=== PATIENT | female | born 1965 | race Caucasian/White ===

== ENCOUNTER 2020-12-13 10:50 | Outpatient (REF) | payer OTHER, SELFPAY ==
--- NOTE | ~2020-12-13 | MM_ITS ---
EXAMINATION: MM SCREENING DIGITAL BREAST TOMOSYNTHESIS, BILATERAL CLINICAL INFORMATION: Screening. Asymptomatic. The lifetime risk of breast cancer based on the Tyrer-Cuzick Model is 5%. COMPARISON: Mammography: 12/15/2018, 12/13/2017, 12/10/2016 TECHNIQUE: Digital breast tomosynthesis is performed in both the craniocaudal and mediolateral oblique views along with computer-aided detection (CAD). Synthesized 2D images are generated from the tomosynthesis. FINDINGS: There are scattered areas of fibroglandular density (ACR BI-RADS breast composition Category b). There are no significant masses, abnormal calcifications, or other abnormalities. Parenchymal pattern is similar to prior studies. No developing density. Skin contours are smooth. No significant changes. MM/MM tomosynthesis screening BI IMPRESSION: No mammographic evidence of malignancy. ASSESSMENT: BI-RADS 1: Negative RECOMMENDATION: Routine annual mammography screening. This patient's information was entered into a reminder system with a target due date for their next mammogram.
== END 2020-12-13 10:51 | disposition home or self-care (01) ==
LOC: HO.MAMMO 10:50
PROVIDERS: PCP Internal Medicine; Visit Provider Internal Medicine
DX: Z12.31 Encounter for screening mammogram for malignant neoplasm of breast (principal)
CPT/HCPCS: 77063; 77067

== ENCOUNTER 2021-10-15 09:25 | Outpatient (REF) | payer OTHER, SELFPAY ==
[2021-10-15 11:28] LABS: MANUAL DIFF FLAG NO
[2021-10-15 11:39] LABS: Basophils Percent Auto 0.6 % (0-2); Eosinophils Absolute Auto 0.1 X10*3/uL (0.0-0.4); Hemoglobin 14.9 g/dl (12.0-16.0); Imm Gran Abs Auto 0.03 X10*3/uL (0.00-0.03); Imm Gran Pct Auto 0.4 % (0.0-0.4); Lymphocytes Absolute Auto 2.2 X10*3/uL (1.2-4.9); Lymphocytes Percent Auto 30.3 % (20-40); Mean Corpuscular HGB Conc 33.1 g/dl (31.0-35.0); Mean Corpuscular Hemoglobin 29.6 pg (27.0-33.0); Mean Corpuscular Volume 89.3 fL (80.0-98.0); Mean Platelet Volume 10.3 fL (9.4-12.3); Monocytes Absolute Auto 0.4 X10*3/uL (0.1-1.2); Monocytes Percent Auto 6.1 % (2-11); Neutrophils Absolute Auto 4.4 x10*3/uL (2.0-8.3); Neutrophils Percent Auto 61.6 % (45-73); Platelet Count 380 X10*3/uL (160-400); Red Blood Count 5.04 X10*6/uL (4.20-5.50); Red Cell Distribution Width 12.8 % (11.0-16.0); White Blood Count 7.2 X10*3/uL (4.8-10.8)
== END 2021-10-15 09:26 | disposition home or self-care (01) ==
LOC: HO.HMGCLDS 09:25
PROVIDERS: Visit Provider Internal Medicine
DX: Z00.01 Encounter for general adult medical examination with abnormal findings (principal); L30.9 Dermatitis, unspecified; J45.40 Moderate persistent asthma, uncomplicated
CPT/HCPCS: 36415; 85025

== ENCOUNTER 2021-12-16 09:44 | Outpatient (REF) | payer OTHER, SELFPAY ==
--- NOTE | ~2021-12-16 | MM_ITS ---
EXAMINATION: MM SCREENING DIGITAL BREAST TOMOSYNTHESIS, BILATERAL CLINICAL INFORMATION: Screening. Asymptomatic. The lifetime risk of breast cancer based on the Tyrer-Cuzick Model is 9.9%. COMPARISON: Mammography: December 13, 2020 and studies dating back to November 04, 2013 TECHNIQUE: Digital breast tomosynthesis is performed in both the craniocaudal and mediolateral oblique views along with computer-aided detection (CAD). Synthesized 2D images are generated from the tomosynthesis. FINDINGS: There are scattered areas of fibroglandular density (ACR BI-RADS breast composition Category b). There are no significant masses, abnormal calcifications, or other abnormalities. MM/MM tomosynthesis screening BI IMPRESSION: There are no significant changes from prior study. ASSESSMENT: BI-RADS 1: Negative RECOMMENDATION: Routine annual mammography screening. This patient's information was entered into a reminder system with a target due date for their next mammogram.
== END 2021-12-16 09:45 | disposition home or self-care (01) ==
LOC: HO.MAMMO 09:44
PROVIDERS: PCP Internal Medicine; Visit Provider Internal Medicine
DX: Z12.31 Encounter for screening mammogram for malignant neoplasm of breast (principal)
CPT/HCPCS: 77063; 77067

== ENCOUNTER 2022-10-23 10:17 | Outpatient (REF) | payer OTHER, SELFPAY ==
[2022-10-23 11:17] LABS: MANUAL DIFF FLAG NO
[2022-10-23 11:56] LABS: Basophils Percent Auto 0.6 % (0-2); Eosinophils Absolute Auto 0.1 X10*3/uL (0.0-0.4); Eosinophils Percent Auto 1.3 % (0-4); Hematocrit 44.9 % (37.0-47.0); Hemoglobin 14.8 g/dl (12.0-16.0); Imm Gran Abs Auto 0.01 X10*3/uL (0.00-0.03); Imm Gran Pct Auto 0.1 % (0.0-0.4); Lymphocytes Absolute Auto 2.3 X10*3/uL (1.2-4.9); Lymphocytes Percent Auto 32.5 % (20-40); Mean Corpuscular Hemoglobin 29.2 pg (27.0-33.0); Mean Corpuscular Volume 88.7 fL (80.0-98.0); Mean Platelet Volume 9.5 fL (9.4-12.3); Monocytes Absolute Auto 0.5 X10*3/uL (0.1-1.2); Monocytes Percent Auto 6.9 % (2-11); Neutrophils Absolute Auto 4.1 x10*3/uL (2.0-8.3); Neutrophils Percent Auto 58.6 % (45-73); Platelet Count 411 X10*3/uL (160-400); Red Blood Count 5.06 X10*6/uL (4.20-5.50); Red Cell Distribution Width 13.2 % (11.0-16.0); White Blood Count 6.9 X10*3/uL (4.8-10.8)
[2022-10-23 11:57] LABS: Appearance Urine Clear; Color Urine Yellow; Glucose Urine UA Negative (Negative); Leukocyte Esterase Urine Trace (Negative); Nitrite Urine Negative (Negative); PH 5.5 (5.0-9.0); UMIC TRIGGER UACC YES; Urine Blood Negative (Negative); Urine Ketones Negative (Negative); Urine Protein Negative (Neg-Trace)
[2022-10-23 12:08] LABS: Bacteria Urine None Seen (None Seen); Hyaline Casts Urine 0-2 /LPF (0-2); RBC Urine 0-2 /HPF (0-2); WBC Urine 0-5 /HPF (0-5)
[2022-10-23 13:57] LABS: Alanine Aminotransferase 28 U/L (0-31); Albumin Level 4.5 g/dL (3.5-5.0); Alkaline Phosphatase 104 U/L (39-117); Anion Gap 15 (12-20); Aspartate Amino Transferase 30 U/L (5-31); Bilirubin Total 0.5 mg/dL (0.0-1.0); Blood Urea Nitrogen 10 mg/dL (9-16); Calcium 9.7 mg/dL (8.4-10.2); Carbon Dioxide 25 mmol/L (22-29); Chloride 107 mmol/L (96-108); Cholesterol 201 mg/dL; Estimated Glomerular Filt Rate > 60; Glucose Fasting 90 mg/dL (60-99); HDL Cholesterol 69 mg/dL; LDL Cholesterol Calculated 113 mg/dl; Potassium 4.6 mmol/L (3.3-5.1); Sodium 142 mmol/L (135-145); Total Protein 7.2 g/dL (6.5-8.0); Triglycerides 96 mg/dL
[2022-10-23 14:14] LABS: TSH reflex Free T4 2.09 uIU/mL (0.32-4.0)
== END 2022-10-23 10:18 | disposition home or self-care (01) ==
LOC: HO.HMGCLDS 10:17
PROVIDERS: PCP Internal Medicine; Visit Provider Internal Medicine
DX: Z00.01 Encounter for general adult medical examination with abnormal findings (principal); E66.09 Other obesity due to excess calories; J45.40 Moderate persistent asthma, uncomplicated
CPT/HCPCS: 36415; 80053; 80061; 81001; 84443; 85025

== ENCOUNTER 2022-12-21 09:46 | Outpatient (REF) | payer OTHER, SELFPAY ==
--- NOTE | ~2022-12-21 | MM_ITS ---
EXAMINATION: MM SCREENING DIGITAL BREAST TOMOSYNTHESIS, BILATERAL CLINICAL INFORMATION: Screening. Asymptomatic. The lifetime risk of breast cancer based on the Tyrer-Cuzick Model is 9%. COMPARISON: Mammography: 12/16/2021, 12/13/2020, 12/15/2018 TECHNIQUE: Digital breast tomosynthesis is performed in both the craniocaudal and mediolateral oblique views along with computer-aided detection (CAD). Synthesized 2D images are generated from the tomosynthesis. FINDINGS: There are scattered areas of fibroglandular density (ACR BI-RADS breast composition Category b). There are no significant masses, abnormal calcifications, or other abnormalities. Parenchymal pattern is similar to prior studies. Scattered minor asymmetries are stable. There is no developing density or architectural abnormality. The axilla and skin contours are unremarkable. No significant changes. MM/MM tomosynthesis screening BI IMPRESSION: No mammographic evidence of malignancy. ASSESSMENT: BI-RADS 2: Benign RECOMMENDATION: Routine annual mammography screening. This patient's information was entered into a reminder system with a target due date for their next mammogram.
== END 2022-12-21 09:47 | disposition home or self-care (01) ==
LOC: HO.MAMMO 09:46
PROVIDERS: PCP Internal Medicine; Visit Provider Internal Medicine
DX: Z12.31 Encounter for screening mammogram for malignant neoplasm of breast (principal)
CPT/HCPCS: 77063; 77067

== ENCOUNTER 2023-10-29 09:46 | Outpatient (AMB) | payer BC, SELFPAY ==
--- NOTE | 2023-10-29 09:48 | MHC.PC.OV ---
Vital Signs 10/29/23 09:49 Height 5 ft 3.5 in Weight 175 lb BMI 30.5 BP 130/80 Blood Pressure Location Lt brachial Position Sitting Pulse 110 H Pulse Source Pulse Oximeter Pulse Oximetry (%) 98 Oxygen Delivery Method Room Air Intake Visit Reasons: PE Allergies codeine [CODEINE] Allergy (Intermediate, Verified 10/29/23 09:57) SHORTNESS OF BREATH montelukast Allergy (Unknown, Verified 10/29/23 09:57) hives salmeterol Allergy (Unknown, Verified 10/29/23 09:57) Unknown beclomethasone [From Qvar] Adverse Reaction (Verified 10/29/23 10:14) Palpitations ENVIRONMENTAL Allergy (Intermediate, Uncoded 10/15/21 08:58) ITCHY EYES,ETC. From SEREVENT DISKUS Allergy (Intermediate, Uncoded 10/15/21 08:58) TACHYCARDIA Codein Allergy (Unknown, Uncoded 10/15/21 08:58) Unknown Codeine Phosphate Allergy (Unknown, Uncoded 10/15/21 08:58) Unknown Latex Allergy (Unknown, Uncoded 10/15/21 08:58) Unknown latex Allergy (Unknown, Uncoded 10/15/21 08:58) Unknown Montelukast Allergy (Unknown, Uncoded 10/15/21 08:58) Unknown seasonal Allergy (Unknown, Uncoded 10/15/21 08:58) Unknown Serevent Diskus Allergy (Unknown, Uncoded 10/15/21 08:58) Unknown Medication List - Last Reconciled 10/29/23 by Jeremy Bullard MD albuterol sulfate 90 mcg/actuation (ProAir HFA) 2 puffs inhalation DAILY 30 days albuterol sulfate 90 mcg/actuation (ProAir HFA) 1 inh inhalation QID PRN 30 days [Blood pressure monitor As directed] Flovent HFA 110 mcg/actuation (fluticasone propionate) 2 puffs inhalation BID 90 days NS Tobacco use date assessed: 10/29/23 Dental Screening Dental Screen Date: 10/29/23 Did you have a dental visit in the last 12 months?: Yes Did you have a dental problem in the last 6 months where you did not have access to dental care?: No Was dental information given to patient?: Patient has dentist HPI PE HPI Details Patient is a 57-year-old female came in today for physical examination Asthma is stable patient is on Flovent inhaler currently, she could not take QVAR and Serevent that caused palpitations Low and has been discontinued patient is little bit worried, I have sent Pulmicort she is to give it a try She is due for colonoscopy however does not want to do it as yet Lab order placed to be done fasting BMI is elevated at 30.5 need to lose weight OBGYN is located at [facility] have smear and breast exam through [facility]. Mammogram is due in December Follow-up 6 months and physical exam 1 year [facility] Surgical History No pertinent past surgical history Family History Other Mental health disorder Social History Housing: House Patient Tobacco Use Status: Never used Tobacco e-Cigarette/Vaping Use: Never Used service: No Current occupational status: unemployed Cognitive needs: No Hearing needs: No Vision needs: Yes Questionnaire PHQ-9 Over the last 2 weeks, how often have you been bothered by any of the following problems? 1. Little interest or pleasure in doing things: not at all 2. Feeling down, depressed, or hopeless: not at all 3. Trouble falling or staying asleep, or sleeping too much: not at all 4. Feeling tired or having little energy: not at all 5. Poor appetite or overeating: not at all 6. Feeling bad about yourself - or that you are a failure or have let yourself or your family down: not at all 7. Trouble concentrating on things, such as reading the newspaper or watching television: not at all 8. Moving or speaking so slowly that other people could have noticed. Or the opposite - being so fidgety or restless that you have been moving around a lot more than usual: not at all 9. Thoughts that you would be better off or of hurting yourself in some way: not at all Total score: 0 Depression Screening Interpretation: Negative Depression Screening Done: Yes 82601 - PHQ-9 Billing: Yes Source: Developed by Drs. Mitchell Carnes, Alisia B.W. Vincent Roy and colleagues, with an educational sandy from [employer]. Thrive Questionnaire Date Thrive assessed: 10/29/23 I am a: Patient Within the past 12 months, did the food you bought not last and you didn't have the money to get more?: Never true Within the past 12 months, did you worry whether your food would run out before you got money to buy more?: Never true Do you have trouble paying for medicines?: No Do you have trouble getting transportation to medical appointments?: No Do you have trouble paying your heating and electricity bill?: No Do you have trouble taking care of your child, family member or friend?: No Do you have trouble with day-to-day activities such as bathing, preparing meals, shopping, managing finances, etc.?: No Are you currently unemployed and looking for a job?: No Please select the resources that you would like help with: Housing/Skilled Nursing and None Currently or been in a relationship where the following occur: no concerns reported THRIVE Score: 0 AUDIT C Alcohol Use Questionnaire (AUDIT-C) 1. How often do you have a drink containing alcohol?: Never 3. How often do you have six or more drinks on one occasion?: Never Total Score: 0 Score Reviewed/Action Taken: Yes DIANE-7 AMB Questionnaire DIANE-7 Date DIANE - 7 assessed: 10/29/23 Feeling nervous, anxious, or on edge: 1 = Several days Not being able to stop or control worryin = Not at all Worrying too much about different things: 0 = Not at all Trouble relaxin = Not at all Being so restless that it is hard to sit still: 0 = Not at all Becoming easily annoyed or irritable: 0 = Not at all Feeling afraid as if something awful might happen: 0 = Not at all Total DIANE-7 score (0-4 normal; 5-9 mild; 10-14 moderate; 15-21 severe): 1 Source: Developed by Drs. Mitchell Carnes, Vincent Tran and colleagues, with an educational sandy from [employer]. DIANE-7 Assessment Billing DIANE-7 Assessment Tool: DIANE-7 Assessment 32381 Review of Systems Const Denies chills, Denies fever(s) and Denies headache(s) Eyes Denies blurry vision ENT Denies headache(s), Denies nasal discharge, Denies nasal obstruction, Denies odynophagia and Denies sinus pain Card Denies chest pain at rest and Denies chest pain with activity Resp Denies cough and Denies hemoptysis GI Denies diarrhea, Denies odynophagia, Denies vomiting and Denies hematemesis Reports as per HPI Musc Denies abnormal gait Skin/Breast Reports as per HPI Neuro Denies Neuro-related abnormal movements, Denies Abnormal speech present, Denies abnormal gait, Denies headache(s) and Denies Sensory deficit (Neuro) Psych Denies mood swings and Denies paranoia Endo Reports as per HPI Seth/Lymph Reports as per HPI Aller/Immun Reports as per HPI Physical exam (Primary Care) Vital Signs: Last Vital Signs Pulse 110 H 10/29/23 09:49 BP 130/80 10/29/23 09:49 Pulse Ox 98 10/29/23 09:49 Oxygen Delivery Method Room Air 10/29/23 09:49 BMI result Body Mass Index 30.5 Tobacco/Smoking Status: Tobacco use Status Tobacco use date assessed 10/29/23 10/29/23 10:04 Patient Tobacco Use Status Never used Tobacco 10/29/23 09:49 e-Cigarette/Vaping Use Never Used 10/29/23 09:49 PHQ-9: PHQ-9 Score PHQ-9: Total score 0 10/29/23 10:06 Depression Screening Interpretation: Negative Thrive Assessment: Date of Thrive Assessment Date Thrive assessed 10/29/23 10/29/23 10:04 Currently or been in a relationship where the following occur: no concerns reported Const General: cooperative, comfortable and no acute distress Orientation/consciousness: patient oriented x3 HENMT Head: Yes normocephalic and Yes atraumatic Eyes General: appearance normal, both eyes and all related structures Pupils: Equal, round and reactive pupils present EOM: EOMs intact bilaterally Neck Neck: Yes supple and No lymphadenopathy Thyroid: Thyroid normal Lymphatic: no lymphadenopathy noted Resp Effort & Inspection: normal respiratory effort and able to speak in complete sentences Auscultation: clear to auscultation bilaterally Cardio Heart sounds: S1 normal heart sound present and S2 normal heart sound present GI Palpation (GI): Soft to palpation and nontender Auscultation: normal bowel sounds General: Yes no CVA tenderness Back/Spine/Pelvis Back: no CVA tenderness Skin General skin exam: elasticity normal and turgor normal Neuro General: patient oriented x3 and gait normal Cranial nerves: Yes Equal, round and reactive pupils present Speech: No Abnormal speech present Sensory Exam: No Sensory deficit (Neuro) Coordination: tandem gait normal and Romberg test negative Extrem General: Yes normal exam except as noted and No edema Assessment and Plan Assessment & Plan (1) Encounter for general adult medical examination with abnormal findings: Code(s): Z00.01 - Encounter for general adult medical examination with abnormal findings (2) Asthma, moderate persistent: Code(s): J45.40 - Moderate persistent asthma, uncomplicated Qualifiers: Asthma complication type: uncomplicated (3) Obesity due to excess calories: Code(s): E66.09 - Other obesity due to excess calories Qualifiers: Obesity classification: adult class 1 (BMI 30 - 34.9) Serious obesity comorbidity presence: without serious comorbidity Body mass index: BMI 30.0-30.9 (4) Anxiety, generalized: Code(s): F41.1 - Generalized anxiety disorder Plan Patient is a 57-year-old female came in today for physical examination Asthma is stable patient is on Flovent inhaler currently, she could not take QVAR and Serevent that caused palpitations Low and has been discontinued patient is little bit worried, I have sent Pulmicort she is to give it a try She takes escitalopram only if needed for few days and then stop, refill provided She is due for colonoscopy however does not want to do it as yet Lab order placed to be done fasting BMI is elevated at 30.5 need to lose weight OBGYN is located at [facility] have smear and breast exam through [facility]. Mammogram is due in December Follow-up 6 months and physical exam 1 year Orders: Orders Complete Blood Count Auto Diff Today E66.09 - Other obesity due to excess calories, J45.40 - Moderate persistent asthma, uncomplicated, Z00. - Encounter for general adult medical examination with abnormal findings Comprehensive [place]. Panel Fast Today E66.09 - Other obesity due to excess calories, J45.40 - Moderate persistent asthma, uncomplicated, Z00.01 - Encounter for general adult medical examination with abnormal findings TSH reflex Free T4 Today E66.09 - Other obesity due to excess calories, J45.40 - Moderate persistent asthma, uncomplicated, Z00.01 - Encounter for general adult medical examination with abnormal findings UA CC w/rflx Micro + Cult Today E66.09 - Other obesity due to excess calories, J45.40 - Moderate persistent asthma, uncomplicated, Z00.01 - Encounter for general adult medical examination with abnormal findings Lipid Panel Today E66.09 - Other obesity due to excess calories, J45.40 - Moderate persistent asthma, uncomplicated, Z00.01 - Encounter for general adult medical examination with abnormal findings Medications: New budesonide 90 mcg/actuation (Pulmicort Flexhaler) 1 inh inhalation BID 30 days 1 ea 0RF escitalopram oxalate (Lexapro) 5 mg PO DAILY 30 tabs 0RF Changed From Flovent HFA 110 mcg/actuation (fluticasone propionate) 2 puffs inhalation BID 90 days 3 multiple units 0RF NS To fluticasone propionate 110 mcg/actuation 2 puffs inhalation BID 90 days 3 multiple units 0RF NS Coding Level of Care Code Est Pt Prev Care 40-64y(13561) Diagnoses Encounter for general adult medical examination with abnormal findings Z00.01 Asthma, moderate persistent J45.40 Asthma complication type: uncomplicated Obesity due to excess calories E66.09 Obesity classification: adult class 1 (BMI 30 - 34.9) Serious obesity comorbidity presence: without serious comorbidity Body mass index: BMI 30.0-30.9 Anxiety, generalized F41.1 Additional Codes DIANE-7 Assessment Billing - DIANE-7 Assessment Tool: DIANE-7 Assessment [id number] ([id number])
[2023-10-29 09:49] VITALS: BP 130/80; PULSE 110; O2SAT 98; BMI 30.5
== END 2023-10-29 10:25 | disposition home or self-care (01) ==
PROVIDERS: Visit Provider Internal Medicine
DX: Z00.00 Encounter for general adult medical examination without abnormal findings (principal); J45.40 Moderate persistent asthma, uncomplicated; E66.09 Other obesity due to excess calories; Z68.30 Body mass index [BMI] 30.0-30.9, adult; F41.1 Generalized anxiety disorder
CPT/HCPCS: 99396

== ENCOUNTER 2023-10-29 10:28 | Outpatient (REF) | payer BC, SELFPAY ==
[2023-10-29 13:26] LABS: MANUAL DIFF FLAG NO
[2023-10-29 13:40] LABS: Appearance Urine Turbid; Color Urine Yellow; Glucose Urine UA Negative (Negative); Leukocyte Esterase Urine Negative (Negative); Nitrite Urine Negative (Negative); Urine Blood Negative (Negative); Urine Ketones Negative (Negative); Urine Protein Negative (Neg-Trace)
[2023-10-29 13:46] LABS: Basophils Absolute Auto 0.1 X10*3/uL (0.0-0.2); Basophils Percent Auto 0.8 % (0-2); Eosinophils Absolute Auto 0.1 X10*3/uL (0.0-0.4); Eosinophils Percent Auto 1.2 % (0-4); Hematocrit 43.8 % (37.0-47.0); Hemoglobin 14.6 g/dl (12.0-16.0); Imm Gran Abs Auto 0.03 X10*3/uL (0.00-0.03); Imm Gran Pct Auto 0.5 % (0.0-0.4); Lymphocytes Absolute Auto 1.7 X10*3/uL (1.2-4.9); Lymphocytes Percent Auto 28.3 % (20-40); Mean Corpuscular HGB Conc 33.3 g/dl (31.0-35.0); Mean Corpuscular Hemoglobin 29.9 pg (27.0-33.0); Mean Corpuscular Volume 89.6 fL (80.0-98.0); Mean Platelet Volume 9.7 fL (9.4-12.3); Monocytes Absolute Auto 0.4 X10*3/uL (0.1-1.2); Neutrophils Absolute Auto 3.8 x10*3/uL (2.0-8.3); Neutrophils Percent Auto 63.2 % (45-73); Platelet Count 427 X10*3/uL (160-400); Red Blood Count 4.89 X10*6/uL (4.20-5.50); Red Cell Distribution Width 12.7 % (11.0-16.0)
[2023-10-29 17:28] LABS: Alanine Aminotransferase 24 U/L (0-31); Albumin Level 4.5 g/dL (3.5-5.0); Alkaline Phosphatase 108 U/L (39-117); Anion Gap 12 (12-20); Aspartate Amino Transferase 26 U/L (5-31); Bilirubin Total 0.5 mg/dL (0.0-1.0); Blood Urea Nitrogen 11 mg/dL (9-16); Calcium 9.8 mg/dL (8.4-10.2); Carbon Dioxide 25 mmol/L (22-29); Chloride 107 mmol/L (96-108); Cholesterol 199 mg/dL (<200); Estimated Glomerular Filt Rate > 60; Glucose Fasting 100 mg/dL (60-99); HDL Cholesterol 70 mg/dL (>40); Potassium 4.1 mmol/L (3.3-5.1); Sodium 140 mmol/L (135-145); TSH reflex Free T4 2.29 uIU/mL (0.32-4.0); Total Protein 7.9 g/dL (6.5-8.0)
[2023-10-29 18:02] LABS: LDL Cholesterol Calculated 113 mg/dL (<100); Triglycerides 80 mg/dL (<150)
== END 2023-10-29 10:29 | disposition home or self-care (01) ==
LOC: HO.HMGCLDS 10:28
PROVIDERS: PCP Internal Medicine; Visit Provider Internal Medicine
DX: Z00.01 Encounter for general adult medical examination with abnormal findings (principal); J45.40 Moderate persistent asthma, uncomplicated; E66.09 Other obesity due to excess calories
CPT/HCPCS: 36415; 80053; 80061; 81003; 84443; 85025

== ENCOUNTER 2023-12-27 09:28 | Outpatient (REF) | payer BC, SELFPAY | END 2023-12-27 09:29 | disposition home or self-care (01) | LOC: HO.MAMMO 09:28 | PROVIDERS: PCP Internal Medicine; Visit Provider Internal Medicine | DX: Z12.31 Encounter for screening mammogram for malignant neoplasm of breast (principal) | CPT/HCPCS: 77063; 77067 ==

== ENCOUNTER → 2023-12-27 09:45 | Outpatient (BNV) | payer BC, SELFPAY | PROVIDERS: PCP Internal Medicine; Visit Provider Radiology Diagnostic Radiology | DX: Z12.31 Encounter for screening mammogram for malignant neoplasm of breast (principal) | CPT/HCPCS: 77063; 77067 ==

== ENCOUNTER 2024-11-10 09:45 | Outpatient (AMB) | payer BC, SELFPAY ==
[2024-11-10 09:47] VITALS: BP 118/78; PULSE 97; O2SAT 98; BMI 29.8
--- NOTE | 2024-11-10 09:47 | A.OFFPC_ITS ---
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 From SEREVENT DISKUS Allergy (Intermediate, Uncoded 10/15/21 08:58) TACHYCARDIA Codein Allergy (Unknown, Uncoded 10/15/21 08:58) Unknown Codeine Phosphate Allergy (Unknown, Uncoded 10/15/21 08:58) Unknown Latex Allergy (Unknown, Uncoded 10/15/21 08:58) Unknown latex Allergy (Unknown, Uncoded 10/15/21 08:58) Unknown Montelukast Allergy (Unknown, Uncoded 10/15/21 08:58) Unknown seasonal Allergy (Unknown, Uncoded 10/15/21 08:58) Unknown Serevent Diskus Allergy (Unknown, Uncoded 10/15/21 08:58) Unknown Medication List - Last Reconciled 11/10/24 by Jeremy Bullard MD albuterol sulfate 90 mcg/actuation (ProAir HFA) 1 inh inhalation QID PRN 30 days [Blood pressure monitor As directed] budesonide 90 mcg/actuation (Pulmicort Flexhaler) 1 inh inhalation BID 30 days escitalopram oxalate (Lexapro) 5 mg PO DAILY Tobacco use date assessed: 11/10/24 Dental Screening Dental Screen Date: 11/10/24 Did you have a dental visit in the last 12 months?: Yes Did you have a dental problem in the last 6 months where you did not have access to dental care?: No Was dental information given to patient?: Patient has dentist HPI PE HPI Details History of Present Illness - The patient is a 58-year-old female pr esenting with a need for a physical examination and medication management. - The patient has a history of asthma fo r which she has been using a fluticasone inhaler. The brand she uses is being discontinued, creating a need for an alternative. She experiences adverse reactions such as tachycardia and lightheadedness with bronchodilators. - She reports impaired glucose tolerance discovered during her previous visit, with normal kidney function but elevated sugar levels. - The patient also has a history of anxi ety, managed intermittently with aescitalopram. - She has been experiencing allergic rhi nitis, with symptoms exacerbated by seasonal changes, particularly in the fall, leading to the occasional use of Benadryl. - The patient reports stability in her e czema, which she has been managing effectively without recent exacerbations. Health Maintenance - Mammogram is due and scheduled for Dec. - Colonoscopy pending scheduling; patien t considering winter timing based on tra nsportation. - Labs to be repeated today include gluc ose levels, vitamin D, lipid levels, thyroid function, liver and kidney functions. - Avoidance of bronchodilators due to a history of adverse reactions. Medications - Fluticasone (for asthma, brand discont inuing) - Esitalopram as needed (for anxiety) Diagnostic results - Labs from October show normal CBC, keshia l kidney functions, slightly elevated glucose levels. Patient Instructions - Schedule mammogram for January 01. - Schedule colonoscopy for winter if tra nsportation is arranged. - Take Claritin daily during allergy sea son as preventive medication. - Follow-up with pharmacy regarding avai lability of alternative inhalers and coverage under insurance. - Use inhaler as directed and report any adverse reactions promptly. - Discuss potential systems support specialist consultation if difficulties persist with inhaler options. - Maintain regular use of anxiety medica tion as needed. Review of Systems - General: No fever no chills - Neurological: No headaches no dizzin ess - Ear nose throat: No sore throat no hearing difficulty no ear pain - Cardiovascular: No syncope, no chest pain, no palpitations - Gastrointestinal: No nausea vomiting or diarrhea - Endocrine: No polyuria polydipsia no heat intolerance - Genitourinary: No dysuria - Skin: No new complaints Physical Exam General: Cooperative, healthy appearing, comfortable, no acute distress Orientation: Patient oriented x3 Head: Normal to inspection Ears: Within normal limit visually Nose: Normal external nose present Face and sinus: Normal facial exam Eyes: Appearance normal, extraocular movement intact pupils reactive Neck: Normal visual inspection and supple Respiratory: Normal respiratory effort and able to speak in complete sentences. Clear to auscultation, no stridor. Lungs are good right now. Cardiovascular: S1 and S2 RRR breast exam by Obgyn GI: Normal to inspection. Soft to palpation and nontender Skin: Turgor normal, no acute findings. Eczema seems to be under control. Neuro: Patient oriented x3, motor sensory intact, balance intact, tandem pass Extremities: Normal to inspection [facility] Surgical History No pertinent past surgical history Family History Other Mental health disorder Social History Housing: House Patient Tobacco Use Status: Never used Tobacco e-Cigarette/Vaping Use: Never Used service: No Current occupational status: unemployed Cognitive needs: No Hearing needs: No Vision needs: Yes Questionnaire PHQ-9 Over the last 2 weeks, how often have you been bothered by any of the following problems? 1. Little interest or pleasure in doing things: not at all 2. Feeling down, depressed, or hopeless: not at all 3. Trouble falling or staying asleep, or sleeping too much: several days 4. Feeling tired or having little energy: several days 5. Poor appetite or overeating: not at all 6. Feeling bad about yourself - or that you are a failure or have let yourself or your family down: not at all 7. Trouble concentrating on things, such as reading the newspaper or watching television: not at all 8. Moving or speaking so slowly that other people could have noticed. Or the opposite - being so fidgety or restless that you have been moving around a lot more than usual: not at all 9. Thoughts that you would be better off or of hurting yourself in some way: not at all Total score: 2 Depression Screening Interpretation: Negative Depression Screening Done: Yes 84248 - PHQ-9 Billing: Yes Source: Developed by Drs. Mitchell Carnes, Alisia Roy, Vincent Lees and colleagues, with an educational sandy from [employer]. Thrive Questionnaire Date Thrive assessed: 11/10/24 I am a: Patient What is your living situation today?: I have a place to live, but I am worried about losing it in the future Within the past 12 months, did the food you bought not last and you didn't have the money to get more?: Never true Within the past 12 months, did you worry whether your food would run out before you got money to buy more?: Never true Do you have trouble paying for medicines?: No Do you have trouble getting transportation to medical appointments?: No Do you have trouble paying your heating and electricity bill?: No Do you have trouble taking care of your child, family member or friend?: No Do you have trouble with day-to-day activities such as bathing, preparing meals, shopping, managing finances, etc.?: No Are you currently unemployed and looking for a job?: No Are you interested in more education?: No Please select the resources that you would like help with: None Currently or been in a relationship where the following occur: No concerns reported THRIVE Score: 1 AUDIT C Alcohol Use Questionnaire (AUDIT-C) 1. How often do you have a drink containing alcohol?: Never 3. How often do you have six or more drinks on one occasion?: Never Total Score: 0 Score Reviewed/Action Taken: Yes DIANE-7 AMB Questionnaire DIANE-7 Date DIANE - 7 assessed: 11/10/24 Feeling nervous, anxious, or on edge: 1 = Several days Not being able to stop or control worryin = Several days Worrying too much about different things: 1 = Several days Trouble relaxin = Several days Being so restless that it is hard to sit still: 0 = Not at all Becoming easily annoyed or irritable: 1 = Several days Feeling afraid as if something awful might happen: 0 = Not at all Total DIANE-7 score (0-4 normal; 5-9 mild; 10-14 moderate; 15-21 severe): 5 Source: Developed by Drs. Mitchell Carnes, Alisia Roy, Vincent Lees and colleagues, with an educational sandy from [employer]. DIANE-7 Assessment Billing DIANE-7 Assessment Tool: DIANE-7 Assessment 57175 Physical exam (Primary Care) Vital Signs: Last Vital Signs Pulse 97 11/10/24 09:47 BP 118/78 11/10/24 09:47 Pulse Ox 98 11/10/24 09:47 Oxygen Delivery Method Room Air 11/10/24 09:47 BMI result Body Mass Index 29.8 Tobacco/Smoking Status: Tobacco use Status Tobacco use date assessed 11/10/24 11/10/24 09:49 Patient Tobacco Use Status Never used Tobacco 11/10/24 09:49 e-Cigarette/Vaping Use Never Used 11/10/24 09:49 PHQ-9: PHQ-9 Score PHQ-9: Total score 2 11/10/24 09:49 Depression Screening Interpretation: Negative Thrive Assessment: Date of Thrive Assessment Date Thrive assessed 11/10/24 11/10/24 09:49 Currently or been in a relationship where the following occur: No concerns reported Coding Level of Care Code Est Pt Level 3 (15558) Est Pt Prev Care 40-64y(40879) Diagnoses Encounter for general adult medical examination with abnormal findings Z00.01 Anxiety, generalized F41.1 Moderate persistent asthma without complication J45.40 Asthma complication type: uncomplicated Additional Codes DIANE-7 Assessment Billing - DIANE-7 Assessment Tool: DIANE-7 Assessment 32714 ([id number]) PHQ-9 - 05913 - PHQ-9 Billing: Yes ([id number]) Assessment & Plan Assessment & Plan (1) Encounter for general adult medical examination with abnormal findings: Code(s): Z00.01 - Encounter for general adult medical examination with abnormal findings Category: Medical (2) Anxiety, generalized: Code(s): F41.1 - Generalized anxiety disorder Category: Medical (3) Asthma, moderate persistent: Code(s): J45.40 - Moderate persistent asthma, uncomplicated Category: Medical Qualifiers: Asthma complication type: uncomplicated Qualified Code(s): J45.40 - Moderate persistent asthma, uncomplicated Plan History of Present Illness - The patient is a 58-year-old female presenting with a need for a physical examination and medication management. - The patient has a history of asthma for which she has been using a fluticasone inhaler. The brand she uses is being discontinued, creating a need for an alternative. She experiences adverse reactions such as tachycardia and lightheadedness with bronchodilators. - She reports impaired glucose tolerance discovered during her previous visit, with normal kidney function but elevated sugar levels. - The patient also has a history of anxiety, managed intermittently with aescitalopram. - She has been experiencing allergic rhinitis, with symptoms exacerbated by seasonal changes, particularly in the fall, leading to the occasional use of Benadryl. - The patient reports stability in her eczema, which she has been managing effectively without recent exacerbations. Health Maintenance - Mammogram is due and scheduled for January 01. - Colonoscopy pending scheduling; patient considering winter timing based on transportation. - Labs to be repeated today include glucose levels, vitamin D, lipid levels, thyroid function, liver and kidney functions. - Avoidance of bronchodilators due to a history of adverse reactions. Medications - Fluticasone (for asthma, brand discontinuing) - Esitalopram as needed (for anxiety) Diagnostic results - Labs from October show normal CBC, normal kidney functions, slightly elevated glucose levels. Patient Instructions - Schedule mammogram for January 01. - Schedule colonoscopy for winter if transportation is arranged. - Take Claritin daily during allergy season as preventive medication. - Follow-up with pharmacy regarding availability of alternative inhalers and coverage under insurance. - Use inhaler as directed and report any adverse reactions promptly. - Discuss potential systems support specialist consultation if difficulties persist with inhaler options. - Maintain regular use of anxiety medication as needed. Orders: Orders Comprehensive Dulce. Panel Fast Today F41.1 - Generalized anxiety disorder, J45.40 - Moderate persistent asthma, uncomplicated, Z00.01 - Encounter for general adult medical examination with abnormal findings Lipid Panel Today F41.1 - Generalized anxiety disorder, J45.40 - Moderate persistent asthma, uncomplicated, Z00.01 - Encounter for general adult medical examination with abnormal findings TSH reflex Free T4 Today F41.1 - Generalized anxiety disorder, J45.40 - Moderate persistent asthma, uncomplicated, Z00.01 - Encounter for general adult medical examination with abnormal findings Complete Blood Count Auto Diff Today F41.1 - Generalized anxiety disorder, J45.40 - Moderate persistent asthma, uncomplicated, Z00.01 - Encounter for general adult medical examination with abnormal findings Vitamin D 25-OH (D2 and D3) Today F41.1 - Generalized anxiety disorder, J45.40 - Moderate persistent asthma, uncomplicated, Z00.01 - Encounter for general adult medical examination with abnormal findings UA CC w/rflx Micro + Cult Today F41.1 - Generalized anxiety disorder, J45.40 - Moderate persistent asthma, uncomplicated, Z00.01 - Encounter for general adult medical examination with abnormal findings Medications: New fluticasone furoate 200 mcg/actuation (Arnuity Ellipta) 1 inh inhalation DAILY 30 ea 0RF Refilled escitalopram oxalate (Lexapro) 5 mg PO DAILY 30 tabs 0RF Discontinued budesonide 90 mcg/actuation (Pulmicort Flexhaler) Discontinued Reason: Doctor's Order 1 inh inhalation BID 30 days 1 ea 0RF
--- OUTSIDE RECORDS SUMMARY | 2024-11-10 10:33 | XMS_ITS | Clinical Summary ---
Author Organization [facility] [address] [place] [address] [address] [place] [address] Phone Care Team Providers Care Hydrochloric Area Supervisor Name Role Phone Jeremy Bullard MD Primary Care Provider [phone] Allergies Active Allergy Reactions Criticality Noted Date Comments Latex 06/10/2021 Montelukast Sodium 06/10/2021 Other 06/10/2021 Seasonal Allergies Salmeterol 06/10/2021 Medications albuterol 2.5 mg /3 mL (0.083 %) nebulizer solution Take 1 Vial by nebulization every 4 hours as needed. Active BUDESONIDE NASL by Nasal route. Active fluticasone propionate (FLOVENT HFA INHL) Inhale into the lungs. Active Surgical History Surgery Date Site/Laterality Comments TONSILLECTOMY PROCEDURE: HISTORICAL TONSILLECTOMY APPENDECTOMY PROCEDURE: HISTORICAL APPENDECTOMY Medical History Medical History Date Comments Mild intermittent asthma, uncomplicated DX:Mild intermittent asthma, uncomplicated History of pneumonia DX:History of pneumonia Anxiety and depression DX:Anxiet y and depression Family History Medical History Relation Name Comments Stroke Father Ovarian cancer Other maternal aunt Stroke Paternal Grandmother Breast cancer Neg Hx Colon cancer Neg Hx Pancreatic cancer Neg Hx Prostate cancer Neg Hx Uterine cancer Neg Hx Relation Name Status Comments Father Other maternal aunt Paternal Grandmother Social History Tobacco Use Types Packs/Day Years Used Date Smoking Tobacco: Never Smokeless Tobacco: Never Alcohol Use Standard Drinks/Week Comments Never 0 (1 standard drink = 0.6 oz pur e alcohol) Housing Instability Answer Date Recorde d Are you worried that in the next 2 months you may not have stable housing? No 10/30/2024 Food Access & Nutrition Answer Date Rec orded Do you have access to a vari ety of food including fruits and vegetables? Yes 10/30/2024 Access to Healthcare Answer Date Record ed Within the last 3 months, ho w many times did you visit the emergency department for your medical care? 0 10/30/2024 Health Literacy Answer Date Recorded How often do you need to hav e someone help you when you read instructions, pamphlets, or other written material from your doctor or pharmacy? Never 10/30/2024 Caregiver: How often do you need to have someone help you when you read instructions, pamphlets, or other written material from your doctor or pharmacy? Not on file 10/30/2024 Financial Risk Answer Date Recorded How hard is it for you to pa y for the very basics like food, housing, medical care, and air conditioning / heating? Not very hard 10/30/2024 Transportation Answer Date Recorded Has the lack of transportati on kept you from meetings, work, or from getting things needed for daily living? No 10/30/2024 Has the lack of transportati on kept you from medical appointments or from getting medications? Not on file 10/30/2024 Social Isolation Answer Date Recorded How often do you feel lonely or isolated from th ose around you? Rarely 10/30/2024 Food Risk Answer Date Recorded Within the past 12 months we worried whether our food would run out before we got money to buy more. Never true 10/30/2024 Within the past 12 months th e food we bought just didn't last and we didn't have money to get more. Never true 10/30/2024 Dependent Care Answer Date Recorded Do you need help finding or paying for care for your loved ones. For example, child development professor or elderly care for an older adult? No 10/30/2024 Education Answer Date Recorded Do you think completing more education or training, like finishing a GED, going to college, or learning a trade, would be helpful for you? No 10/30/2024 Employment and Income Answer Date Recor ded During the last four weeks, have you been actively looking for work? No 10/30/2024 Living Situation Answer Date Recorded What is your living situation? 0 10/30/2024 Comments Unknown Sex and Gender Information Value Date Recorded Sex Assigned at Not on file Legal Sex Female 8:05 AM EST Gender Identity Not on file Sexual Orientation Not on file Obstetrics History Plan of Treatment Upcoming Encounters Date Type Department Care Team (Late st Contact Info) Description 11/23/2024 9:00 AM EDT Office Visit Obstetrics and Gynecology - [address] [phone] Anna Hector, CAITLYN [address] [place] [address] Health Maintenance Due Date Last Done Comments Breast Cancer Screening 1965 DTaP,Tdap,and Td Vaccines (1 - Tdap) 12/19/1983 Hepatitis B Vaccines (1 of 3 - 19+ 3-dose series) 12/19/1983 Pneumococcal Vaccine: 50+ Ye ars (1 of 1 - PCV) 2014 Zoster Vaccines (1 of 2) 2014 Colorectal Cancer Screening: Colonoscopy 06/14/2022 HIV Screening 06/14/2022 Hepatitis C Screening 06/14/2022 COVID-19 Vaccine (1 - 2023-2 5 season) 2024 Influenza Vaccine (Season Ended) 2025 Depression Screening 10/30/2025 10/30/2024 Social Influencers of Health Screening 10/30/2025 10/30/2024 Cervical Cancer Screening: HPV 06/10/2026 06/10/2021 RSV Immunization Adult Patie nts (1 - 1-dose 75+ series) 12/19/2039 HIB Vaccines Aged Out No longer eligi ble based on patient's age to complete this topic HPV Vaccines Aged Out No longer eligi ble based on patient's age to complete this topic Hepatitis A Vaccines Aged Out No long er eligible based on patient's age to complete this topic IPV Vaccines Aged Out No longer eligi ble based on patient's age to complete this topic MMR Vaccines Aged Out No longer eligi ble based on patient's age to complete this topic Meningococcal ACWY Vaccine Aged Out N o longer eligible based on patient's age to complete this topic Meningococcal B Vaccine Aged Out No l onger eligible based on patient's age to complete this topic Pneumococcal Vaccine: Pediat rics (0 to 5 Years) and At-Risk Patients (6 to 64 Years) Aged Out No longer eligi ble based on patient's age to complete this topic RSV Immunization Patients Un niharika 20 months Aged Out No longer eligible b ased on patient's age to complete this topic Varicella Vaccines Aged Out No longer eligible based on patient's age to complete this topic Procedures Procedure Name Priority Date/Time Associated Diagnosis Comments HPV Routine 06/10/2021 from Last 3 Months or Most Recently Relevant to Health Maintenance Results * Cervical Cancer Screening: HPV (06/10/2021) Cervical Cancer Screening: HPV Negative, Abstracted us Historical Provider HEALTH MAINTENANCE Final Result from Last 3 Months or Most Recently Relevant to Health Maintenance Insurance [facility] Care Teams Hydrochloric Area Supervisor Relationship Specialty Start Date End Date Jeremy Bullard MD [address] [place] [phone] PCP - General Internal Medicine 06/10/21
== END 2024-11-10 10:26 | disposition home or self-care (01) ==
LOC: HO.HMCC 09:46
PROVIDERS: PCP Internal Medicine; Visit Provider Internal Medicine
DX: Z00.01 Encounter for general adult medical examination with abnormal findings (principal); F41.1 Generalized anxiety disorder; J45.40 Moderate persistent asthma, uncomplicated

== ENCOUNTER 2024-11-10 09:45 | Outpatient (REF) | payer BC, SELFPAY ==
--- OUTSIDE RECORDS SUMMARY | 2024-11-10 11:35 | XMS_ITS | Clinical Summary ---
Author Organization [facility] [address] [place] [address] [address] [place] [address] Phone Care Team Providers Care Nurse Navigator Name Role Phone Jeremy Bullard MD Primary Care Provider [phone] Allergies Active Allergy Reactions Criticality Noted Date [...] for your loved ones. For example, child and adolescent therapist or elderly care for an older adult? [...] EDT Office Visit Obstetrics and Gynecology - [address] [address] Anna Hector, CAITLYN [address] [place] [address] Health Maintenance Due Date Last Done Comments [...] Most Recently Relevant to Health Maintenance Insurance [facility] Care Teams Nurse Navigator Relationship Specialty Start Date End Date Jeremy Bullard MD [address] [place] [phone] PCP - General Internal Medicine 06/10/21
[2024-11-10 13:17] LABS: MANUAL DIFF FLAG NO
[2024-11-10 13:36] LABS: Appearance Urine Turbid; Color Urine Yellow; Glucose Urine UA Negative (Negative); Leukocyte Esterase Urine Negative (Negative); Nitrite Urine Negative (Negative); PH 5.5 (5.0-9.0); Specific Gravity - Urine 1.025 (1.005-1.025); Urine Blood Negative (Negative); Urine Ketones Trace mg/dL (Negative); Urine Protein Negative (Neg-Trace)
[2024-11-10 13:47] LABS: Basophils Absolute Auto 0.1 X10*3/uL (0.0-0.2); Basophils Percent Auto 1.1 % (0-2); Eosinophils Absolute Auto 0.1 X10*3/uL (0.0-0.4); Eosinophils Percent Auto 0.9 % (0-4); Hematocrit 42.3 % (37.0-47.0); Imm Gran Abs Auto 0.01 X10*3/uL (0.00-0.03); Imm Gran Pct Auto 0.2 % (0.0-0.4); Lymphocytes Absolute Auto 1.8 X10*3/uL (1.2-4.9); Lymphocytes Percent Auto 31.6 % (20-40); Mean Corpuscular HGB Conc 33.1 g/dl (31.0-35.0); Mean Corpuscular Hemoglobin 29.7 pg (27.0-33.0); Mean Corpuscular Volume 89.8 fL (80.0-98.0); Mean Platelet Volume 9.8 fL (9.4-12.3); Monocytes Absolute Auto 0.4 X10*3/uL (0.1-1.2); Monocytes Percent Auto 6.1 % (2-11); Neutrophils Absolute Auto 3.4 x10*3/uL (2.0-8.3); Neutrophils Percent Auto 60.1 % (45-73); Platelet Count 395 X10*3/uL (160-400); Red Blood Count 4.71 X10*6/uL (4.20-5.50); Red Cell Distribution Width 12.8 % (11.0-16.0); White Blood Count 5.7 X10*3/uL (4.8-10.8)
[2024-11-10 14:08] LABS: Alanine Aminotransferase 30 U/L (0-31); Albumin Level 4.5 g/dL (3.5-5.0); Alkaline Phosphatase 100 U/L (39-117); Anion Gap 16 (12-20); Aspartate Amino Transferase 31 U/L (5-31); Bilirubin Total 0.7 mg/dL (0.0-1.0); Blood Urea Nitrogen 11 mg/dL (9-16); Calcium 9.9 mg/dL (8.4-10.2); Carbon Dioxide 23 mmol/L (22-29); Chloride 108 mmol/L (96-108); Cholesterol 203 mg/dL (<200); Estimated Glomerular Filt Rate > 60; Glucose Fasting 94 mg/dL (60-99); HDL Cholesterol 74 mg/dL (>40); LDL Cholesterol Calculated 115 mg/dL (<100); Potassium 4.1 mmol/L (3.3-5.1); Sodium 143 mmol/L (135-145); TSH reflex Free T4 2.29 uIU/mL (0.32-4.0); Total Protein 7.6 g/dL (6.5-8.0); Triglycerides 70 mg/dL (<150)
[2024-11-15 14:43] LABS: Vitamin D 25-OH, D2 <4 ng/mL; Vitamin D 25-OH, D3 30 ng/mL; Vitamin D 25-OH, Total 30 ng/mL (30-100)
== END 2024-11-10 09:46 | disposition home or self-care (01) ==
LOC: HO.HMGCLDS 09:45
PROVIDERS: PCP Internal Medicine; Visit Provider Internal Medicine
DX: Z00.01 Encounter for general adult medical examination with abnormal findings (principal); F41.1 Generalized anxiety disorder; J45.40 Moderate persistent asthma, uncomplicated; Z13.6 Encounter for screening for cardiovascular disorders
CPT/HCPCS: 36415; 80053; 80061; 81003; 82306; 84443; 85025; 96127

== ENCOUNTER 2025-01-01 09:27 | Outpatient (REF) | payer BC, SELFPAY ==
--- NOTE | ~2025-01-01 | MM_ITS ---
EXAMINATION: MM SCREENING DIGITAL BREAST TOMOSYNTHESIS, BILATERAL CLINICAL INFORMATION: Screening. Asymptomatic. COMPARISON: Mammography: Comparison is made with available priors TECHNIQUE: Digital breast mammography with tomosynthesis is performed in both the craniocaudal and mediolateral oblique views along with computer-aided detection (CAD). FINDINGS: There are scattered areas of fibroglandular density (ACR BI-RADS breast composition Category b). There are no significant masses, abnormal calcifications, or other abnormalities. MM/MM tomosynthesis screening BI IMPRESSION: No mammographic evidence of malignancy. ASSESSMENT: BI-RADS BI-RADS 1 - Negative RECOMMENDATION: Routine annual mammography screening. 1 year F/U This examination should not preclude the clinical evaluation of a suspicious palpable abnormality. This patient's information was entered into a reminder system with a target due date for their next mammogram. Electronically signed by: Sasha Balderas DO 01/05/2025 10:22 AM EDT
--- OUTSIDE RECORDS SUMMARY | 2025-01-01 10:17 | XMS_ITS | Patient Health Record ---
Author Organization [facility] Address [address] [place] [phone] Care Team Providers Care Automotive Title Clerk Name Role Phone Mitchell Swan Unavailable [phone] Reason For Referral No Information Plan Of Treatment No Information
== END 2025-01-01 09:28 | disposition home or self-care (01) ==
LOC: HO.MAMMO 09:27
PROVIDERS: PCP Internal Medicine; Visit Provider Internal Medicine
DX: Z12.31 Encounter for screening mammogram for malignant neoplasm of breast (principal)
CPT/HCPCS: 77063; 77067

== ENCOUNTER → 2025-01-01 09:45 | Outpatient (BNV) | payer BC, SELFPAY | PROVIDERS: PCP Internal Medicine; Visit Provider Internal Medicine | DX: Z12.31 Encounter for screening mammogram for malignant neoplasm of breast (principal) | CPT/HCPCS: 77063; 77067 ==

== ENCOUNTER 2025-05-08 09:53 | Outpatient (AMB) | payer BC, SELFPAY ==
[2025-05-08 09:56] VITALS: BP 120/76; PULSE 103; RESP 16; O2SAT 99; BMI 28.4
--- NOTE | 2025-05-08 09:56 | A.OFFPC_ITS ---
Vital Signs 05/08/25 09:56 Height 5 ft 3.5 in Weight 163 lb BMI 28.4 BP 120/76 Blood Pressure Location Rt brachial Position Sitting Respiration 16 Pulse 103 H Pulse Source Pulse Oximeter Pulse Oximetry (%) 99 Oxygen Delivery Method Room Air Intake Visit Reasons: Reschedule 6 mon f/up Allergies codeine (CODEINE) Allergy (Intermediate, Verified 11/10/24 09:47) SHORTNESS OF BREATH montelukast Allergy (Unknown, Verified 11/10/24 09:47) hives salmeterol Allergy (Unknown, Verified 11/10/24 09:47) Unknown beclomethasone (From Qvar) Adverse Reaction (Verified 11/10/24 09:47) Palpitations ENVIRONMENTAL Allergy (Intermediate, Uncoded 10/15/21 08:58) ITCHY EYES,ETC. From SEREVENT DISKUS Allergy (Intermediate, Uncoded 10/15/21 08:58) TACHYCARDIA Codein Allergy (Unknown, Uncoded 10/15/21 08:58) Unknown Codeine Phosphate Allergy (Unknown, Uncoded 10/15/21 08:58) Unknown Latex Allergy (Unknown, Uncoded 10/15/21 08:58) Unknown latex Allergy (Unknown, Uncoded 10/15/21 08:58) Unknown Montelukast Allergy (Unknown, Uncoded 10/15/21 08:58) Unknown seasonal Allergy (Unknown, Uncoded 10/15/21 08:58) Unknown Serevent Diskus Allergy (Unknown, Uncoded 10/15/21 08:58) Unknown Medication List - Last Reconciled 05/08/25 by Jeremy Bullard MD albuterol sulfate 90 mcg/actuation (ProAir HFA) 1 inh inhalation QID PRN 30 days [Blood pressure monitor As directed] escitalopram oxalate (Lexapro) 5 mg PO DAILY fluticasone furoate 200 mcg/actuation (Arnuity Ellipta) 1 inh inhalation DAILY Tobacco use date assessed: 11/10/24 Dental Screening Dental Screen Date: 11/10/24 HPI Reschedule 6 mon f/up HPI Details History of Present Illness The patient is a 59-year-old female presenting for a six-month follow-up for chronic condition management. Asthma: - The patient reports her asthma is gene rally well-controlled but she experienced an asthma attack a couple of days ago, which she attributes to changes in the weather. - Her current maintenance therapy is a f luticasone 200 mcg inhaler used once daily, which replaced her previous regimen of Flovent 110 mcg twice daily. - She feels the current medication is as effective as Flovent but misses the flexibility of the previous regimen, where she could take an extra puff on difficult days to prevent an attack. Anxiety: - The patient is taking escitalopram 5 m g for anxiety. Health Maintenance: - The patient received a flu vaccine on 03/21 and a Moderna COVID-19 vaccine on 04/06. - The patient declined the RSV vaccine a t this time. - Her last labs (CBC and metabolic profi le) were in November and were normal. Medical History: - Asthma - Anxiety Medications: - Citalopram 5 mg daily for anxiety - Fluticasone 200 mcg inhaler, one puff once a day for asthma - Albuterol inhaler as needed for asthma symptoms Problem List - Asthma - Anxiety Plan - A 90-day refill for the fluticasone in [facility] will be sent to the patient's pharmacy for pickup. - A refill for (Lexapro) will also be s ent. - The patient will continue her current medications as prescribed. - The patient was advised she can use he r albuterol rescue inhaler every 4-6 hours as needed during flare-ups. - The patient was counseled on the RSV v accine but has deferred receiving it at this time. - The patient is scheduled for a follow- up visit for a physical in November, at which time fasting labs will be ordered. Review of Systems - General: No fever no chills - Neurological: No headaches no dizziness - Ear nose throat: No sore throat no hearing difficulty no ear pain - Cardiovascular: No syncope, no chest pain, no palpitations - Gastrointestinal: No nausea vomiting or diarrhea - Endocrine: No polyuria polydipsia no heat intolerance - Genitourinary: No dysuria , no blood in urine Physical Exam General: No acute distress HEENT: No acute findings Neck: Supple Respiratory system: Lungs are clear, able to talk in full sentences, no audible wheeze Cardiovascular: S1-S2 regular in rate and rhythm Gastrointestinal: No pain Extremities: No new findings DRIVER EXAMINER: Alert awake oriented x3 motor intact Skin: Normal turgor [facility] Surgical History No pertinent past surgical history Family History Other Mental health disorder Social History Housing: House Patient Tobacco Use Status: Never used Tobacco e-Cigarette/Vaping Use: Never Used service: No Current occupational status: unemployed Cognitive needs: No Hearing needs: No Vision needs: Yes Questionnaire Thrive Questionnaire Date Thrive assessed: 11/07/24 I am a: Patient What is your living situation today?: I have a place to live, but I am worried about losing it in the future Within the past 12 months, did the food you bought not last and you didn't have the money to get more?: Never true Within the past 12 months, did you worry whether your food would run out before you got money to buy more?: Never true Do you have trouble paying for medicines?: No Do you have trouble getting transportation to medical appointments?: No Do you have trouble paying your heating and electricity bill?: No Do you have trouble taking care of your child, family member or friend?: No Do you have trouble with day-to-day activities such as bathing, preparing meals, shopping, managing finances, etc.?: No Are you currently unemployed and looking for a job?: No Are you interested in more education?: No Please select the resources that you would like help with: None Currently or been in a relationship where the following occur: No concerns reported THRIVE Score: 1 DIANE-7 AMB Questionnaire DIANE-7 Date DIANE - 7 assessed: 11/10/24 Source: Developed by Drs. Mitchell Carnes, Alisia Roy, Vincent Lees and colleagues, with an educational sandy from [employer]. Physical exam (Primary Care) Vital Signs: Last Vital Signs Pulse 103 H 05/08/25 09:56 Resp 16 05/08/25 09:56 BP 120/76 05/08/25 09:56 Pulse Ox 99 05/08/25 09:56 Oxygen Delivery Method Room Air 05/08/25 09:56 BMI result Body Mass Index 28.4 Tobacco/Smoking Status: Tobacco use Status Tobacco use date assessed 11/10/24 05/08/25 10:02 Patient Tobacco Use Status Never used Tobacco 05/08/25 10:02 e-Cigarette/Vaping Use Never Used 05/08/25 10:02 Thrive Assessment: Date of Thrive Assessment Date Thrive assessed 11/07/24 05/08/25 10:02 Currently or been in a relationship where the following occur: No concerns reported Coding Level of Care Code Est Pt Level 3 (28558) Diagnoses Moderate persistent asthma without complication J45.40 Asthma complication type: uncomplicated Anxiety, generalized F41.1 Assessment & Plan Assessment & Plan (1) Asthma, moderate persistent: Code(s): J45.40 - Moderate persistent asthma, uncomplicated Category: Medical Qualifiers: Asthma complication type: uncomplicated Qualified Code(s): J45.40 - Moderate persistent asthma, uncomplicated (2) Anxiety, generalized: Code(s): F41.1 - Generalized anxiety disorder Category: Medical Plan Asthma: - The patient reports her asthma is generally well-controlled but she experienced an asthma attack a couple of days ago, which she attributes to changes in the weather. - Her current maintenance therapy is a fluticasone 200 mcg inhaler used once daily, which replaced her previous regimen of Flovent 110 mcg twice daily. - She feels the current medication is as effective as Flovent but misses the flexibility of the previous regimen, where she could take an extra puff on difficult days to prevent an attack. Anxiety: - The patient is taking escitalopram 5 mg for anxiety. Health Maintenance: - The patient received a flu vaccine on 03/21 and a Moderna COVID-19 vaccine on 04/06. - The patient declined the RSV vaccine at this time. - Her last labs (CBC and metabolic profile) were in November and were normal. Medical History: - Asthma - Anxiety Medications: - Citalopram 5 mg daily for anxiety - Fluticasone 200 mcg inhaler, one puff once a day for asthma - Albuterol inhaler as needed for asthma symptoms Problem List - Asthma - Anxiety Plan - A 90-day refill for the fluticasone inhaler will be sent to the patient's pharmacy for pickup. - A refill for (Lexapro) will also be sent. - The patient will continue her current medications as prescribed. - The patient was advised she can use her albuterol rescue inhaler every 4-6 hours as needed during flare-ups. - The patient was counseled on the RSV vaccine but has deferred receiving it at this time. - The patient is scheduled for a follow-up visit for a physical in November, at which time fasting labs will be ordered. Medications: Changed From fluticasone furoate 200 mcg/actuation (Arnuity Ellipta) 1 inh inhalation DAILY 30 ea 2RF To fluticasone furoate 200 mcg/actuation (Arnuity Ellipta) 1 inh inhalation DAILY 3 multiple units 1RF 90 days Refilled escitalopram oxalate (Lexapro) further refill will require clinic visit with your doctor 5 mg PO DAILY 90 tabs 1RF
--- OUTSIDE RECORDS SUMMARY | 2025-05-08 11:41 | XMS_ITS | Clinical Summary ---
Author Organization [facility] [address] [place] [address] [address] [place] [address] Phone Care Team Providers Care Risk Engineer Name Role Phone Jeremy Bullard MD Primary Care Provider [phone] Allergies Active Allergy Reactions Criticality Noted Date Comments Latex 06/10/2021 Montelukast Sodium 06/10/2021 Other 06/10/2021 Seasonal Allergies Salmeterol 06/10/2021 Medications albuterol 2.5 mg /3 mL (0.083 %) nebulizer solution Take 1 Vial by nebulization every 4 hours as needed. Active BUDESONIDE NASL by Nasal route. Active fluticasone propionate (FLOVENT HFA INHL) Inhale into the lungs. Active escitalopram (LEXAPRO) 5 mg tablet Take 1 tablet (5 mg total) by mouth 1 (one) time each day. 5 Active Arnuity Ellipta 200 mcg/actuation blister with device inhaler Inhale 1 puff by mouth 1 (one) time each day. 5 Active ibuprofen (ADVIL,MOTRIN) 800 mg tablet Take 1 tablet (800 mg total) by mouth every 8 (eight) hours if needed. for pain 4 Active albuterol HFA (PROAIR HFA ; PROVENTIL HFA ; VENTOLIN HFA) 90 mcg/actuation inhaler INHALE 1 PUFF BY MOUTH 4 TIMES A DAY NEEDED FOR SHORTNESS OF BREATH OR WHEEZE 5 Active Active Problems No known active problems Surgical History Surgery Date Site/Laterality Comments TONSILLECTOMY [...] Date Smoking Tobacco: Never Smokeless Tobacco: Never Tobacco Cessation:Counseling Given: Not Answered Alcohol Use Standard Drinks/Week Comments Never 0 [...] Record ed Within the last 3 months, josh fletcher many times did you visit the emergency [...] for your loved ones. For example, child care assistant or elderly care for an older adult? [...] Date Recorded What is your living situation? Unrecognized valu e 10/30/2024 Comments No Sex and Gender Information Value Date Recorded Sex Assigned at Not on file Legal Sex Female 8:05 AM EST Gender Identity Not on file Sexual Orientation Not on file Obstetrics History Para Term AB IAB SAB Ectopic Multiple Livin g Live Births 1 1 1 0 0 0 1 1 Date Outcome GA Total Labor Labor/2nd/3rd Weight Sex Type Anes PTL [place] A1 A5 Name Clin 1988 Term F Vag-S pont Living Last Filed Vital Signs Vital Sign Reading Time Taken Comments Blood Pressure 123/71 11/23/2024 8:55 AM EDT Pulse 81 11/23/2024 8:55 AM EDT Temperature - - Respiratory Rate - - Oxygen Saturation - - Inhaled Oxygen Concentration - - Weight 77.1 kg (170 lb) 11/23/2024 8:55 AM EDT Height 161.3 cm (5' 3.5 ) 11/23/2024 8:55 AM EDT Body Mass Index 29.64 11/23/2024 8:55 AM EDT Plan of Treatment Health Maintenance Due Date Last Done Comments Breast Cancer Screening 1965 Colorectal Cancer Screening: Colonoscopy 1965 DTaP,Tdap,and Td Vaccines (1 - Tdap) 12/19/1983 Pneumococcal Vaccine: 50+ Years (1 of 1 - PCV) 2014 Zoster Vaccines (1 of 2) 2014 HIV Screening 06/14/2022 Hepatitis C Screening 06/14/2022 Influenza Vaccine (#1) 2025 4, 03/26/2023, 03/21/2022, Additional history exists Social Influencers of Health Screening 10/30/2025 10/30/2024 Cervical Cancer Screening: HPV 11/23/2029 11/23/2024, 06/10/2021 RSV Immunization Adult Patients (1 - 1-dose 75+ series) 12/19/2039 COVID-19 Vaccine Completed 04/09/2024, 10/2022, 04/20/2022, Additional history exists Depression Screening Completed 11/16/2024 HIB Vaccines Aged Out No longer eligi ble based on patient's age to complete this topic HPV Vaccines Aged Out No longer eligi ble based on patient's age to complete this topic Hepatitis A Vaccines Aged Out No long er eligible based on patient's age to complete this topic Hepatitis B Vaccines Aged Out No long er eligible [...] to complete this topic RSV Immunization Patients Under 20 months Aged Out No longer eligible based on patient's age to complete this topic Varicella Vaccines Aged Out No longer eligible based on patient's age to complete this topic Procedures Procedure Name Priority Date/Time Associated Diagnosis Comments HPV WITH REFLEX GENOTYPE Routine 11/23/2024 9:10 AM EDT Encounter for annual routine gynecological examination Menopause from Last 3 Months or Most Recently Relevant to Health Maintenance Results * HPV with reflex genotype (11/23/2024 9:10 AM EDT) HPV Negative Negative LAB MICROBIOLOGY METHOD 11/27/2024 9:54 AM EDT [facility] Brushing/Spatula Cervix uteri structure / Unknown 11/23/2024 9:10 AM EDT 11/24/2024 6:24 AM EDT us Anna Hector [facility] MOLECULAR DIAGNOSTICS ORDER BENNY Final Result [facility] [address] [place] [address], from Last 3 Months or Most Recently Relevant to Health Maintenance Insurance [facility] Care Teams Risk Engineer Relationship Specialty Start Date End Date Jeremy Bullard MD [address] [place] [address] PCP - General Internal Medicine 06/10/21
--- OUTSIDE RECORDS SUMMARY | 2025-05-08 11:41 | XMS_ITS | Patient Health Record ---
Author Organization [facility] Address [address] [place] [id number] Care Team Providers Care Electronic News Gathering Editor Name Role Phone Mitchell Swan Unavailable [phone] Reason For Referral No Information Plan Of Treatment No Information
== END 2025-05-08 10:22 | disposition home or self-care (01) ==
LOC: HO.HMCC 09:55
PROVIDERS: PCP Internal Medicine; Visit Provider Internal Medicine
DX: J45.40 Moderate persistent asthma, uncomplicated (principal); F41.1 Generalized anxiety disorder